=== PATIENT | female | born 1960 | race Caucasian/White ===

== ENCOUNTER 2022-10-20 09:54 | Outpatient (CLI) | payer BC ==
--- NOTE | 2022-10-20 13:17 | XRAY Report ---
PROCEDURE: Chest 2 View X-Ray INDICATIONS: CHEST PX TECHNIQUE: 2 views of the chest were acquired. COMPARISON: None. FINDINGS: Surgical changes and devices: None. Lungs and pleura: No pleural effusions or pneumothorax. Lungs are clear. Mediastinum: Mediastinal contours appear normal. Heart size is normal. Bones and chest wall: No suspicious bony lesions. Old T12 compression. Overlying soft tissues appear unremarkable. IMPRESSION: 1. No acute cardiopulmonary process. 2. Old T12 compression. Reviewed by: Isreal Peters MD on 10/20/2022 1:16 PM PDT Approved by: Isreal Peters MD on 10/20/2022 1:16 PM PDT Station ID: [id number]
== END 2022-10-20 09:55 | disposition home or self-care (01) ==
LOC: DI 09:54
PROVIDERS: ATTEND Physician Assistant
DX: R06.02 Shortness of breath (principal)

== ENCOUNTER 2024-03-13 13:16 | Outpatient (CLI) | payer MEDICARE | END 2024-03-13 13:17 | disposition home or self-care (01) | LOC: RT 13:16 | PROVIDERS: ATTEND Internal Medicine | DX: R06.2 Wheezing (principal) | CPT/HCPCS: 94010 ==